=== PATIENT | male | born 1985 | race Caucasian/White ===

== ENCOUNTER 2016-07-30 10:42 | Inpatient (IN) | payer OTHER ==
[~2016-07-30] VITALS: Ht 182.9 cm; Wt 65.8 kg
[2016-07-30 19:37] VITALS: BP 134/88
[2016-07-30] MEDS ORDERED: MIRALAX 17 GM POWD.PACK PO PRN (19:45)
[2016-07-30] MEDS ORDERED: MAGNESIUM HYDROXIDE 30 ML LIQUID UDC PO PRN (19:45)
[2016-07-30] MEDS ORDERED: ONDANSETRON 4 MG/2 ML VIAL IM PRN (19:45)
[2016-07-30] MEDS ORDERED: ONDANSETRON ODT 4 MG TAB.RAPDIS SL PRN (19:45)
[2016-07-30] MEDS ORDERED: DICYCLOMINE HCL 20 MG TABLET PO PRN (19:45)
[2016-07-30] MEDS ORDERED: IBUPROFEN 400 MG TABLET PO PRN (19:45)
[2016-07-30] MEDS ORDERED: ACETAMINOPHEN 325 MG TABLET PO PRN (19:45)
[2016-07-30] MEDS ORDERED: MAG HYDROX/AL HYDROX/SIMETH 30 ML LIQUID UDC PO PRN (19:45)
[2016-07-30] MEDS: BUPRENORPHINE HCL 2 MG TAB.SUBL SL PRN (20:01)
[2016-07-30 20:34] LABS: *AMPHETAMINE, URINE NEGATIVE (NEGATIVE); *BARBITURATE, URINE NEGATIVE (NEGATIVE); *CANNABINOID, URINE NEGATIVE (NEGATIVE); *COCCAINE, URINE NEGATIVE (NEGATIVE); *OPIATE, URINE NEGATIVE (NEGATIVE); *PHENCYCLIDINE SCREEN,URINE NEGATIVE (NEGATIVE)
[2016-07-30 20:35] LABS: BASOPHILS # (AUTO) 0.1 K/uL (0.0-8.0); BASOPHILS % (AUTO) 0.7 % (0.0-2.0); EOSINOPHILS # (AUTO) 0.2 K/uL (0.0-0.7); EOSINOPHILS % (AUTO) 1.3 % (0.0-7.0); HEMATOCRIT 42.1 % (40-50); HEMOGLOBIN 14.4 G/DL (14.0-18.0); LYMPHOCYTES # (AUTO) 3.7 K/uL (20.0-40.0); LYMPHOCYTES % (AUTO) 25.3 % (20.5-51.5); MEAN CORPUSCULAR HEMOGLOBIN 30.2 UUG (27.0-31.0); MEAN CORPUSCULAR HGB CONC 34 g/dL (32.0-37.0); MEAN CORPUSCULAR VOLUME 88.3 FL (82.0-92.0); MONOCYTES # (AUTO) 0.9 K/uL (2.0-10.0); MONOCYTES % (AUTO) 5.8 % (0.0-11.0); NEUTROPHILS # (AUTO) 9.9 K/uL (1.8-8.9); NEUTROPHILS % (AUTO) 66.9 % (38.5-71.5); PLATELET COUNT (AUTO) 307 K/UL (150-450); RED BLOOD CELL COUNT(AUTO) 4.77 MIL/UL (4.7-6.1); RED CELL DISTRIBUTION WIDTH 11.8 % (11.5-14.5); WHITE BLOOD COUNT (AUTO) 14.8 K/UL (4.0-11.2)
[2016-07-30 20:53] LABS: ALANINE AMINOTRANSFERASE 22 U/L (16-63); ALBUMIN 4.1 g/dL (3.4-5.0); ALKALINE PHOSPHATASE 68 U/L (50-136); AMYLASE 118 U/L (25-115); ASPARTATE AMINOTRANSFERASE 16 U/L (15-37); BILIRUBIN,TOTAL 0.1 mg/dL (0.2-1.0); CALCIUM 9.3 mg/dL (8.5-10.1); CHLORIDE 105 mmol/L (98-107); GFR 88 mL/min (>60); GLUCOSE 101 mg/dL (74-106); LIPASE 473 U/L (73-393); MAGNESIUM 1.9 mg/dL (1.8-2.4); POTASSIUM 4.2 mmol/L (3.5-5.1); SODIUM SERUM 145 mmol/L (136-145); TOTAL PROTEIN, SERUM 6.9 g/dL (6.4-8.2); UREA NITROGEN, BLOOD 10 mg/dL (7-18)
[2016-07-30 20:55] VITALS: BP 135/86
[2016-07-30 20:55] LABS: CARBON DIOXIDE 34 mmol/L (21-32)
[2016-07-30 20:58] LABS: ETHANOL < 3 MG/DL (0-0)
[2016-07-30 21:16] LABS: HIV-1 p24 ANTIGEN NON REACTIVE (NONREACTIVE); HIV-1/2 ANTIBODY NON REACTIVE (NONREACTIVE)
[2016-07-30 21:23] LABS: THYROID STIMULATING HORMONE 1.336 mIU/mL (0.358-3.740)
[2016-07-30 21:34] VITALS: BP 122/86
[2016-07-30] MEDS: CLONIDINE HCL 0.1 MG TABLET PO PRN (21:37)
[2016-07-30] MEDS: METHOCARBAMOL 750 MG TABLET PO PRN (21:37)
[2016-07-30 23:34] VITALS: BP 113/77
[2016-07-30] MEDS: HYDROXYZINE PAMOATE 25 MG CAPSULE PO PRN (23:36)
[2016-07-31] VITALS: BP 120/76
[2016-07-31] MEDS: LOPERAMIDE HCL 2 MG CAPSULE PO PRN ×3 (00:01→20:37)
[2016-07-31] MEDS: diphenhydrAMINE 50 MG CAPSULE PO PRN (01:34)
[2016-07-31 04:52] VITALS: BP 108/66
[2016-07-31 08:00] VITALS: BP 118/64
[2016-07-31] MEDS: METHOCARBAMOL 750 MG TABLET PO PRN ×2 (08:12→14:52)
[2016-07-31] MEDS: BUPRENORPHINE HCL 2 MG TAB.SUBL SL PRN (08:13)
[2016-07-31] MEDS: MULTIVITAMINS,THERAPEUTIC TABLET PO SCH (08:17)
[2016-07-31] MEDS ORDERED: TUBERCULIN,PURIF.PROT.DERIV. 5 TU/0.1 ML TEST ID ONE (09:00)
[2016-07-31 12:00] VITALS: BP 122/72
[2016-07-31] MEDS: BUPRENORPHINE HCL 2 MG TAB.SUBL SL SCH ×3 (13:06→20:37)
[2016-07-31] MEDS: HYDROXYZINE PAMOATE 25 MG CAPSULE PO PRN ×2 (14:34→20:37)
[2016-07-31 16:00] VITALS: BP 121/70
[2016-07-31] MEDS: CLONIDINE HCL 0.1 MG TABLET PO PRN (17:40)
[2016-07-31 20:29] VITALS: BP 122/80
[2016-08-01 00:30] VITALS: BP 114/74
[2016-08-01] MEDS: METHOCARBAMOL 750 MG TABLET PO PRN ×2 (02:15→14:49)
[2016-08-01] MEDS: diphenhydrAMINE 50 MG CAPSULE PO PRN (02:16)
[2016-08-01 04:25] VITALS: BP 108/54
[2016-08-01 07:40] LABS: BASOPHILS % (AUTO) 0.1 % (0.0-2.0); EOSINOPHILS # (AUTO) 0.2 K/uL (0.0-0.7); EOSINOPHILS % (AUTO) 1.9 % (0.0-7.0); HEMOGLOBIN 12.5 G/DL (14.0-18.0); LYMPHOCYTES # (AUTO) 3.7 K/uL (20.0-40.0); LYMPHOCYTES % (AUTO) 30.1 % (20.5-51.5); MEAN CORPUSCULAR HEMOGLOBIN 30.7 UUG (27.0-31.0); MEAN CORPUSCULAR HGB CONC 35 g/dL (32.0-37.0); MEAN CORPUSCULAR VOLUME 88.9 FL (82.0-92.0); MONOCYTES # (AUTO) 0.9 K/uL (2.0-10.0); MONOCYTES % (AUTO) 7.1 % (0.0-11.0); NEUTROPHILS # (AUTO) 7.6 K/uL (1.8-8.9); NEUTROPHILS % (AUTO) 60.8 % (38.5-71.5); PLATELET COUNT (AUTO) 247 K/UL (150-450); RED CELL DISTRIBUTION WIDTH 11.8 % (11.5-14.5); WHITE BLOOD COUNT (AUTO) 12.4 K/UL (4.0-11.2)
[2016-08-01 07:56] LABS: HEMATOCRIT 36.2 % (40-50); RED BLOOD CELL COUNT(AUTO) 4.08 MIL/UL (4.7-6.1)
[2016-08-01 07:58] LABS: ALANINE AMINOTRANSFERASE 19 U/L (16-63); ALBUMIN 3.2 g/dL (3.4-5.0); ALKALINE PHOSPHATASE 60 U/L (50-136); ASPARTATE AMINOTRANSFERASE 14 U/L (15-37); BILIRUBIN,DIRECT < 0.1 mg/dL (0.0-0.2); BILIRUBIN,TOTAL 0.1 mg/dL (0.2-1.0); CALCIUM 8.5 mg/dL (8.5-10.1); CARBON DIOXIDE 29 mmol/L (21-32); CHLORIDE 108 mmol/L (98-107); CREATININE 1.1 mg/dL (0.6-1.3); GFR 79 mL/min (>60); GLUCOSE 93 mg/dL (74-106); SODIUM SERUM 142 mmol/L (136-145); TOTAL PROTEIN, SERUM 5.6 g/dL (6.4-8.2); UREA NITROGEN, BLOOD 13 mg/dL (7-18)
[2016-08-01 08:00] VITALS: BP 111/66
[2016-08-01] MEDS: MULTIVITAMINS,THERAPEUTIC TABLET PO SCH (08:35)
[2016-08-01] MEDS: BUPRENORPHINE HCL 2 MG TAB.SUBL SL SCH ×3 (08:36→21:20)
[2016-08-01] MEDS: HYDROXYZINE PAMOATE 25 MG CAPSULE PO PRN (08:41)
[2016-08-01] MEDS: CLONIDINE HCL 0.1 MG TABLET PO PRN (08:41)
[2016-08-01] MEDS ORDERED: IBUPROFEN 400 MG TABLET PO PRN (11:15)
[2016-08-01] MEDS: IBUPROFEN 800 MG TABLET PO PRN (11:32)
[2016-08-01] MEDS: LIDOCAINE VISCUS 2% 15 ML UDC MM SCH ×2 (11:32→21:17)
[2016-08-01] MEDS: CLONIDINE HCL 0.1 MG TABLET PO SCH ×3 (13:24→21:19)
[2016-08-01] MEDS: HYDROXYZINE PAMOATE 25 MG CAPSULE PO SCH ×3 (13:24→21:19)
[2016-08-01 13:46] VITALS: BP 125/67
[2016-08-01] MEDS: GABAPENTIN 300 MG CAPSULE PO SCH (14:49)
[2016-08-01 18:06] VITALS: BP 116/60
[2016-08-01 20:30] VITALS: BP 104/63
[2016-08-01] MEDS ORDERED: GABAPENTIN 300 MG CAPSULE PO SCH (21:00)
[2016-08-01] MEDS: AMOXICILLIN-CLAVUL 875-125MG TABLET PO SCH (21:18)
[2016-08-02 00:20] VITALS: BP 115/64
[2016-08-02 04:43] VITALS: BP 105/53
[2016-08-02] MEDS: LIDOCAINE VISCUS 2% 15 ML UDC MM SCH ×3 (06:38→22:00)
[2016-08-02 08:00] VITALS: BP 98/60
[2016-08-02] MEDS: HYDROXYZINE PAMOATE 25 MG CAPSULE PO SCH ×4 (08:56→20:47)
[2016-08-02] MEDS: MULTIVITAMINS,THERAPEUTIC TABLET PO SCH (08:56)
[2016-08-02] MEDS: GABAPENTIN 300 MG CAPSULE PO SCH ×3 (08:56→20:46)
[2016-08-02] MEDS: CLONIDINE HCL 0.1 MG TABLET PO SCH ×4 (08:57→20:46)
[2016-08-02] MEDS: AMOXICILLIN-CLAVUL 875-125MG TABLET PO SCH ×2 (08:57→20:47)
[2016-08-02] MEDS ORDERED: BUPRENORPHINE HCL 2 MG TAB.SUBL SL SCH (09:00)
[2016-08-02] MEDS: METHOCARBAMOL 750 MG TABLET PO PRN (09:56)
[2016-08-02 13:04] VITALS: BP 124/69
[2016-08-02] MEDS ORDERED: BACLOFEN 20 MG TABLET PO PRN (14:00)
[2016-08-02] MEDS: BUPRENORPHINE HCL 2 MG TAB.SUBL SL SCH ×2 (14:23→20:47)
[2016-08-02] MEDS: LOPERAMIDE HCL 2 MG CAPSULE PO PRN (14:27)
[2016-08-02] MEDS: IBUPROFEN 800 MG TABLET PO PRN (14:27)
[2016-08-02 17:41] VITALS: BP 120/60
[2016-08-02 20:11] VITALS: BP 128/79
[2016-08-02] MEDS: DICYCLOMINE HCL 20 MG TABLET PO SCH (20:46)
[2016-08-02] MEDS: BACLOFEN 20 MG TABLET PO SCH (20:47)
[2016-08-03 00:16] VITALS: BP 125/83
[2016-08-03] MEDS: METHOCARBAMOL 750 MG TABLET PO PRN (03:52)
[2016-08-03 04:39] VITALS: BP 111/68
[2016-08-03 05:06] LABS: HCV AB <0.1 s/co ratio (0.0-0.9); HEPATITIS B CORE AB, IgM Negative (Negative); HEPATITIS B SURFACE AG Negative (Negative)
[2016-08-03] MEDS: LIDOCAINE VISCUS 2% 15 ML UDC MM SCH ×3 (06:00→22:00)
[2016-08-03 07:22] LABS: EOSINOPHILS # (AUTO) 0.3 K/uL (0.0-0.7); EOSINOPHILS % (AUTO) 2.2 % (0.0-7.0); HEMATOCRIT 35.3 % (40-50); HEMOGLOBIN 12.1 G/DL (14.0-18.0); LYMPHOCYTES # (AUTO) 2.4 K/UL (0.8-4.8); LYMPHOCYTES % (AUTO) 18.5 % (20.5-51.5); MEAN CORPUSCULAR HEMOGLOBIN 30.3 UUG (27.0-31.0); MEAN CORPUSCULAR HGB CONC 34 g/dL (32.0-37.0); MONOCYTES % (AUTO) 7.2 % (0.0-11.0); NEUTROPHILS # (AUTO) 9.5 K/UL (1.8-8.9); NEUTROPHILS % (AUTO) 72.1 % (38.5-71.5); PLATELET COUNT (AUTO) 217 K/UL (150-450); RED BLOOD CELL COUNT(AUTO) 4.01 MIL/UL (4.7-6.1); RED CELL DISTRIBUTION WIDTH 11.9 % (11.5-14.5); WHITE BLOOD COUNT (AUTO) 13.2 K/UL (4.0-11.2)
[2016-08-03 07:34] LABS: CALCIUM 8.7 mg/dL (8.5-10.1); CARBON DIOXIDE 29 mmol/L (21-32); CHLORIDE 105 mmol/L (98-107); CREATININE 0.6 mg/dL (0.6-1.3); GFR > 130 mL/min (>60); GLUCOSE 136 mg/dL (74-106); MAGNESIUM 1.9 mg/dL (1.8-2.4); PHOSPHOROUS 2.9 mg/dL (2.5-4.9); POTASSIUM 4.3 mmol/L (3.5-5.1); SODIUM SERUM 137 mmol/L (136-145); UREA NITROGEN, BLOOD 10 mg/dL (7-18)
[2016-08-03] MEDS: AMOXICILLIN-CLAVUL 875-125MG TABLET PO SCH ×2 (08:12→21:20)
[2016-08-03] MEDS: HYDROXYZINE PAMOATE 25 MG CAPSULE PO SCH ×4 (08:12→21:22)
[2016-08-03] MEDS: DICYCLOMINE HCL 20 MG TABLET PO SCH ×3 (08:12→21:20)
[2016-08-03] MEDS: BACLOFEN 20 MG TABLET PO SCH ×3 (08:12→21:21)
[2016-08-03] MEDS: MULTIVITAMINS,THERAPEUTIC TABLET PO SCH (08:12)
[2016-08-03] MEDS: GABAPENTIN 300 MG CAPSULE PO SCH ×3 (08:12→21:21)
[2016-08-03] MEDS: CLONIDINE HCL 0.1 MG TABLET PO SCH ×4 (08:13→21:20)
[2016-08-03] MEDS: BUPRENORPHINE HCL 2 MG TAB.SUBL SL SCH ×3 (08:13→21:22)
[2016-08-03 08:17] VITALS: BP 119/70
[2016-08-03] MEDS: ACETAMINOPHEN ES 500 MG TABLET PO SCH ×3 (11:41→21:21)
[2016-08-03 12:00] VITALS: BP 124/83
[2016-08-03 16:55] VITALS: BP 127/86
[2016-08-03 20:00] VITALS: BP 108/67
[2016-08-03] MEDS: diphenhydrAMINE 50 MG CAPSULE PO PRN (23:22)
[2016-08-03] MEDS: IBUPROFEN 800 MG TABLET PO PRN (23:25)
[2016-08-04] VITALS: BP 122/50
[2016-08-04] MEDS: LIDOCAINE VISCUS 2% 15 ML UDC MM SCH ×3 (06:00→22:00)
[2016-08-04 08:00] LABS: BASOPHILS % (AUTO) 0.1 % (0.0-2.0); EOSINOPHILS # (AUTO) 0.3 K/uL (0.0-0.7); EOSINOPHILS % (AUTO) 2.3 % (0.0-7.0); HEMATOCRIT 35.7 % (40-50); HEMOGLOBIN 12.5 G/DL (14.0-18.0); LYMPHOCYTES # (AUTO) 2.2 K/UL (0.8-4.8); LYMPHOCYTES % (AUTO) 17.2 % (20.5-51.5); MEAN CORPUSCULAR HEMOGLOBIN 31.2 UUG (27.0-31.0); MEAN CORPUSCULAR HGB CONC 35 g/dL (32.0-37.0); MEAN CORPUSCULAR VOLUME 89.4 FL (82.0-92.0); MONOCYTES # (AUTO) 0.8 K/UL (0.1-1.30); MONOCYTES % (AUTO) 5.8 % (0.0-11.0); NEUTROPHILS # (AUTO) 9.7 K/UL (1.8-8.9); NEUTROPHILS % (AUTO) 74.6 % (38.5-71.5); PLATELET COUNT (AUTO) 231 K/UL (150-450); RED CELL DISTRIBUTION WIDTH 11.8 % (11.5-14.5)
[2016-08-04 08:15] LABS: ALANINE AMINOTRANSFERASE 97 U/L (16-63); ALKALINE PHOSPHATASE 56 U/L (50-136); AMYLASE 53 U/L (25-115); ASPARTATE AMINOTRANSFERASE 57 U/L (15-37); BILIRUBIN,TOTAL 0.1 mg/dL (0.2-1.0); CARBON DIOXIDE 31 mmol/L (21-32); CHLORIDE 106 mmol/L (98-107); CREATININE 0.7 mg/dL (0.6-1.3); GFR > 130 mL/min (>60); GLUCOSE 104 mg/dL (74-106); LIPASE 129 U/L (73-393); POTASSIUM 4.6 mmol/L (3.5-5.1); SODIUM SERUM 143 mmol/L (136-145); TOTAL PROTEIN, SERUM 6.1 g/dL (6.4-8.2); UREA NITROGEN, BLOOD 9 mg/dL (7-18)
[2016-08-04 08:38] LABS: BAND % (MANUAL) 3 % (0-10); EOSINOPHILS % (MANUAL) 2 % (0-8); LYMPHOCYTES % (MANUAL) 18 % (20-40); MONOCYTES % (MANUAL) 7 % (2-10); NEUTROPHILS % (MANUAL) 70 % (42-75); PLATELET ESTIMATE ADEQUATE
[2016-08-04 08:41] VITALS: BP 106/62
[2016-08-04] MEDS: AMOXICILLIN-CLAVUL 875-125MG TABLET PO SCH ×2 (08:42→21:16)
[2016-08-04] MEDS: BUPRENORPHINE HCL 2 MG TAB.SUBL SL SCH ×2 (08:42→17:08)
[2016-08-04] MEDS: ACETAMINOPHEN ES 500 MG TABLET PO SCH ×3 (08:43→21:16)
[2016-08-04] MEDS: GABAPENTIN 300 MG CAPSULE PO SCH ×3 (08:43→21:18)
[2016-08-04] MEDS: HYDROXYZINE PAMOATE 25 MG CAPSULE PO SCH ×4 (08:43→21:17)
[2016-08-04] MEDS: BACLOFEN 20 MG TABLET PO SCH ×3 (08:43→21:16)
[2016-08-04] MEDS: MULTIVITAMINS,THERAPEUTIC TABLET PO SCH (08:43)
[2016-08-04] MEDS: CLONIDINE HCL 0.1 MG TABLET PO SCH ×4 (08:43→21:22)
[2016-08-04] MEDS: DICYCLOMINE HCL 20 MG TABLET PO SCH ×3 (08:43→21:16)
[2016-08-04] MEDS ORDERED: BUPRENORPHINE HCL 2 MG TAB.SUBL SL SCH ×2 (09:00)
[2016-08-04 13:25] VITALS: BP 124/68
[2016-08-04] MEDS ORDERED: KETOROLAC TROMETHAMINE 30 MG INJ IM ONE (14:00)
[2016-08-04 17:02] VITALS: BP 116/68
[2016-08-04] MEDS: METHOCARBAMOL 750 MG TABLET PO PRN (17:08)
[2016-08-04] MEDS ORDERED: ACETAMINOPHEN 325 MG TABLET PO ONE (18:45)
[2016-08-04] MEDS: LIDOCAINE 5% PATCH TD SCH (18:46)
[2016-08-04 20:00] VITALS: BP 115/63
[2016-08-04] MEDS: diphenhydrAMINE 50 MG CAPSULE PO PRN (21:18)
[2016-08-04] MEDS: KETOROLAC TROMETHAMINE 30 MG INJ IM PRN (21:20)
[2016-08-05] VITALS: BP 114/68
[2016-08-05 04:00] VITALS: BP 121/65
[2016-08-05] MEDS: LIDOCAINE VISCUS 2% 15 ML UDC MM SCH ×3 (06:00→22:00)
[2016-08-05 08:00] VITALS: BP 112/76
[2016-08-05 08:20] LABS: EOSINOPHILS # (AUTO) 0.2 K/uL (0.0-0.7); EOSINOPHILS % (AUTO) 1.8 % (0.0-7.0); HEMATOCRIT 37.5 % (40-50); HEMOGLOBIN 12.7 G/DL (14.0-18.0); LYMPHOCYTES # (AUTO) 2.1 K/UL (0.8-4.8); LYMPHOCYTES % (AUTO) 15.5 % (20.5-51.5); MEAN CORPUSCULAR HEMOGLOBIN 30.3 UUG (27.0-31.0); MEAN CORPUSCULAR HGB CONC 34 g/dL (32.0-37.0); MEAN CORPUSCULAR VOLUME 89.5 FL (82.0-92.0); MONOCYTES # (AUTO) 0.9 K/UL (0.1-1.30); MONOCYTES % (AUTO) 6.4 % (0.0-11.0); NEUTROPHILS # (AUTO) 10.6 K/UL (1.8-8.9); NEUTROPHILS % (AUTO) 76.3 % (38.5-71.5); PLATELET COUNT (AUTO) 247 K/UL (150-450); RED BLOOD CELL COUNT(AUTO) 4.19 MIL/UL (4.7-6.1); RED CELL DISTRIBUTION WIDTH 12.1 % (11.5-14.5); WHITE BLOOD COUNT (AUTO) 13.8 K/UL (4.0-11.2)
[2016-08-05 08:24] LABS: BILIRUBIN,TOTAL 0.2 mg/dL (0.2-1.0); CALCIUM 9.4 mg/dL (8.5-10.1); CREATININE 0.9 mg/dL (0.6-1.3); POTASSIUM 4.7 mmol/L (3.5-5.1); TOTAL PROTEIN, SERUM 6.2 g/dL (6.4-8.2)
[2016-08-05] MEDS ORDERED: BUPRENORPHINE HCL 2 MG TAB.SUBL SL SCH (09:00)
[2016-08-05] MEDS: CLONIDINE HCL 0.1 MG TABLET PO SCH ×4 (09:36→21:38)
[2016-08-05] MEDS: DICYCLOMINE HCL 20 MG TABLET PO SCH ×3 (09:36→21:37)
[2016-08-05] MEDS: AMOXICILLIN-CLAVUL 875-125MG TABLET PO SCH ×2 (09:36→21:37)
[2016-08-05] MEDS: ACETAMINOPHEN ES 500 MG TABLET PO SCH ×3 (09:36→21:37)
[2016-08-05] MEDS: MULTIVITAMINS,THERAPEUTIC TABLET PO SCH (09:36)
[2016-08-05] MEDS: BACLOFEN 20 MG TABLET PO SCH ×3 (09:37→21:37)
[2016-08-05] MEDS: GABAPENTIN 300 MG CAPSULE PO SCH ×3 (09:37→21:38)
[2016-08-05] MEDS: HYDROXYZINE PAMOATE 25 MG CAPSULE PO SCH ×4 (09:37→21:37)
[2016-08-05] MEDS: LIDOCAINE 5% PATCH TD SCH (09:48)
[2016-08-05 12:00] VITALS: BP 116/62
[2016-08-05] MEDS ORDERED: LIDO30AD10 TD (13:16)
[2016-08-05] MEDS ORDERED: DICY20TA28 PO (13:16)
[2016-08-05] MEDS ORDERED: CLON0.1T14 PO (13:16)
[2016-08-05] MEDS ORDERED: Baclofen PO (13:16)
[2016-08-05] MEDS ORDERED: Amox Tr/Potassium Clavulanate PO (13:16)
[2016-08-05] MEDS ORDERED: Ibuprofen PO (13:16)
[2016-08-05] MEDS ORDERED: Gabapentin PO (13:16)
[2016-08-05] MEDS ORDERED: HYDR-3895 PO (13:16)
[2016-08-05 16:00] VITALS: BP 94/50
[2016-08-05 19:51] LABS: *AMPHETAMINE, URINE NEGATIVE (NEGATIVE); *BARBITURATE, URINE NEGATIVE (NEGATIVE); *CANNABINOID, URINE NEGATIVE (NEGATIVE); *COCCAINE, URINE NEGATIVE (NEGATIVE); *OPIATE, URINE NEGATIVE (NEGATIVE); *PHENCYCLIDINE SCREEN,URINE NEGATIVE (NEGATIVE)
[2016-08-05 20:00] VITALS: BP 134/78
[2016-08-05] MEDS: KETOROLAC TROMETHAMINE 30 MG INJ IM PRN (21:37)
[2016-08-05] MEDS: METHOCARBAMOL 750 MG TABLET PO PRN (21:38)
[2016-08-05] MEDS: diphenhydrAMINE 50 MG CAPSULE PO PRN (21:38)
[2016-08-06] VITALS: BP 107/54
[2016-08-06 04:00] VITALS: BP 110/72
[2016-08-06] MEDS: LIDOCAINE VISCUS 2% 15 ML UDC MM SCH (06:00)
[2016-08-06 08:00] VITALS: BP 100/59
[2016-08-06 08:18] LABS: EOSINOPHILS # (AUTO) 0.3 K/uL (0.0-0.7); EOSINOPHILS % (AUTO) 1.8 % (0.0-7.0); HEMATOCRIT 38.2 % (40-50); HEMOGLOBIN 13.1 G/DL (14.0-18.0); LYMPHOCYTES # (AUTO) 2.1 K/UL (0.8-4.8); LYMPHOCYTES % (AUTO) 13.1 % (20.5-51.5); MEAN CORPUSCULAR HEMOGLOBIN 30.8 UUG (27.0-31.0); MEAN CORPUSCULAR HGB CONC 34 g/dL (32.0-37.0); MEAN CORPUSCULAR VOLUME 89.8 FL (82.0-92.0); MONOCYTES # (AUTO) 0.5 K/UL (0.1-1.30); MONOCYTES % (AUTO) 3.1 % (0.0-11.0); NEUTROPHILS # (AUTO) 13.1 K/UL (1.8-8.9); PLATELET COUNT (AUTO) 266 K/UL (150-450); RED BLOOD CELL COUNT(AUTO) 4.26 MIL/UL (4.7-6.1); RED CELL DISTRIBUTION WIDTH 12.1 % (11.5-14.5)
[2016-08-06 08:20] VITALS: BP 100/59
[2016-08-06] MEDS: GABAPENTIN 300 MG CAPSULE PO SCH (08:20)
[2016-08-06] MEDS: HYDROXYZINE PAMOATE 25 MG CAPSULE PO SCH (08:20)
[2016-08-06] MEDS: MULTIVITAMINS,THERAPEUTIC TABLET PO SCH (08:20)
[2016-08-06] MEDS: ACETAMINOPHEN ES 500 MG TABLET PO SCH (08:20)
[2016-08-06] MEDS: BACLOFEN 20 MG TABLET PO SCH (08:20)
[2016-08-06] MEDS: CLONIDINE HCL 0.1 MG TABLET PO SCH (08:20)
[2016-08-06] MEDS: DICYCLOMINE HCL 20 MG TABLET PO SCH (08:20)
[2016-08-06] MEDS: AMOXICILLIN-CLAVUL 875-125MG TABLET PO SCH (08:21)
[2016-08-06] MEDS: LIDOCAINE 5% PATCH TD SCH (08:21)
[2016-08-06 08:28] LABS: CREATININE 0.8 mg/dL (0.6-1.3); POTASSIUM 4.8 mmol/L (3.5-5.1)
[2016-08-06] MEDS ORDERED: ESCITALOPRAM OXALATE 10 MG TABLET PO SCH (09:00)
[2016-08-06 09:24] LABS: BAND % (MANUAL) 7 % (0-10); EOSINOPHILS % (MANUAL) 1 % (0-8); LYMPHOCYTES % (MANUAL) 20 % (20-40); METAMYELOCYTES % 4 % (0-1); MYELOCYTES % 2 % (0-0); NEUTROPHILS % (MANUAL) 63 % (42-75)
[2016-08-06 09:26] LABS: MONOCYTES % (MANUAL) 3 % (2-10); PLATELET ESTIMATE ADEQUATE
== END 2016-08-06 10:22 | disposition other institution (70) | DRG 895 ==
LOC: SRC 17:57
PROVIDERS: ADMIT Internal Medicine; ATTEND Internal Medicine
PROC: HZ2ZZZZ Detoxification Services for Substance Abuse Treatment (ICD-10-PCS; principal; 2016-07-30)
PROC: HZ31ZZZ Individual Counseling for Substance Abuse Treatment, Behavioral (ICD-10-PCS; 2016-08-01)
PROC: HZ41ZZZ Group Counseling for Substance Abuse Treatment, Behavioral (ICD-10-PCS; 2016-08-04)
DX: F11.23 Opioid dependence with withdrawal (principal); K85.90 Acute pancreatitis without necrosis or infection, unspecified; Z80.0 Family history of malignant neoplasm of digestive organs; G47.00 Insomnia, unspecified; K05.20 Aggressive periodontitis, unspecified; F17.210 Nicotine dependence, cigarettes, uncomplicated; D72.829 Elevated white blood cell count, unspecified
CPT/HCPCS: 36415; 70030-TC; 76700; 80307; 83690; 83735; 84100; 84443; 85025; 85651; 86140; 86580; 86592; 86705; 86803; 87340; 87806; 93005; G6040-TC; J1885; J2405; Q0162; Q0163